=== PATIENT | male | born 1955 | race Hispanic/Latino ===

== ENCOUNTER 2017-08-16 07:20 | Emergency (ER) | payer BC ==
[2017-08-16 07:25] VITALS: BMI 22.6
[2017-08-16 07:33] VITALS: O2SAT 100
--- NOTE | 2017-08-16 07:50 | ED PDOC ---
Arrival/HPI - General Chief Complaint: Palpitations Time Seen by Provider: 08/16/17 07:50 - History of Present Illness Narrative History of Present Illness (Text): 08/16/17 7:50 Patient is a 61 year old male whose medical history includes afib, and throat cancer, who presents to the Emergency department complaining of palpitations and general weakness. Patient reports that he woke up this morning feeling fine but gradually started experiencing general weakness. He measured his BP twice at home with initial reading at 118/92 and subsequent measurement at 92/65. He notes that his BP machine found his heart rate to be erratic during both readings. Patient takes Metoprolol once daily for afib but denies taking any blood thinners. Patient denies any sob, nausea, vomiting, chest pain, fevers or any other complaints at this time. Of note patient is present with his significant other. His last cancer treatment was on April 2016. Rfid Analyst:. Time/Duration: Prior to Arrival Symptom Onset: Gradual Symptom Course: Unchanged Context: Home Past Medical History - Provider Review Nursing Documentation Reviewed: Yes - Infectious Disease Hx of Infectious Diseases: None - Cardiac Hx Atrial Fibrillation: Yes - Pulmonary Hx Respiratory Disorders: No - Neurological Hx Neurological Disorder: No - HEENT Hx HEENT Disorder: Yes Other/Comment: high pressure in left eye. throat cancer - Renal Hx Renal Disorder: No - Endocrine/Metabolic Hx Endocrine Disorders: No - Hematological/Oncological Hx Blood Transfusions: No Hx Blood Transfusion Reaction: No - Integumentary Hx Dermatological Disorder: No - Musculoskeletal/Rheumatological Hx Musculoskeletal Disorders: No - Gastrointestinal Hx Gastrointestinal Disorders: No - Genitourinary/Gynecological Hx Genitourinary Disorders: No - Psychiatric Hx Substance Use: No - Anesthesia Hx Anesthesia Reactions: Yes (LEG STIFFINESS/PAIN FOR 3 DAYS ) Hx Malignant Hyperthermia: No - Suicidal Assessment Feels Threatened In Home Enviroment: No Family/Social History - Physician Review Nursing Documentation Reviewed: Yes Family/Social History: No Known Family HX Smoking Status: Never Smoked Hx Alcohol Use: Yes (WINE- STOPPED WHEN DIAG W/CA) Hx Substance Use: No Allergies/Home Meds Allergies/Adverse Reactions: Allergies No Known Allergies Allergy (Verified 02/12/16 10:07) Home Medications: Home Meds Medication Instructions Recorded Confirmed Metoprolol Tartrate [Lopressor] 12.5 mg PO DAILY 06/09/16 06/09/16 Review of Systems - Physician Review All systems were reviewed & negative as marked: Yes - Review of Systems Respiratory: absent: SOB Cardiovascular: Palpitations Physical Exam - Physical Exam Narrative Physical Exam (Text): 08/16/17 07:50 Constitutional: No acute distress. Head: Normocephalic. Atraumatic. Eyes: PERRL. ENT: Moist mucous membranes. Neck: Supple. Cardiovascular: Regular rate. Chest: No tenderness. Respiratory: Clear to auscultation bilaterally. GI: Soft. Nontender. Nondistended. Back: No CVA tenderness. Musculoskeletal: No tenderness or swelling of extremities. Skin: No rash. Neurologic: Alert, no focal deficit. Vital Signs Temp Pulse Resp BP Pulse Ox 08/16/17 09:26 97.8 F 70 16 121/84 100 08/16/17 09:16 97.8 F 70 16 121/84 100 08/16/17 07:21 97.7 F 95 H 18 118/79 100 Medical Decision Making ED Course and Treatment: 08/16/17 07:50 Impression: Patient is a 61 year old male with history of afib and presents with general weakness and "erratic" HR on home BP machine, NSR in ED with no focal symptoms and normal Vital signs. Differential Diagnosis included but are not limited to: occult infection vs. dehydration vs. afib Plan: --labs and chest X-ray ordered. -- Reassess and disposition Prior Visits: Notes and results from previous visits were reviewed. Patient was last seen in the emergency department on Progress Notes: 08/16/17 07:58 EKG result shows NSR at [address]/T wave changes. 08/16/17 08:05 Chest X-ray results shows no acute disease. Interpreted by me. 08/16/17 09:00 Reevaluation: On reevaluation the patient feels better and is in no acute distress. I have discussed the results and plan with the patient, who expresses understanding. Patient given the opportunity to ask question, all questions were answered and there is agreement with the plan to discharge. Patient is stable for discharge. Patient was instructed to follow up with physician/clinic in 1-2 days or return if symptoms persist/worsen or new concerning symptoms arise. - Lab Interpretations Lab Results: 08/16/17 08:00 08/16/17 08:00 Lab Results 08/16/17 08:00: Sodium 142, Potassium 4.1, Chloride 105, Carbon Dioxide 29, Anion Gap 12, BUN 21, Creatinine 1.0, Est GFR ( Amer) > 60, Est GFR (Non- Af Amer) > 60, Random Glucose 122 H, Calcium 9.0, Phosphorus 2.6, Magnesium 2.0 , Total Bilirubin 0.4, AST 24, ALT 32, Alkaline Phosphatase 54, Total Protein 6.1, Albumin 3.8, Globulin 2.3, Albumin/Globulin Ratio 1.7 08/16/17 08:00: WBC 4.6, RBC 4.36, Hgb 13.9 L, Hct 40.4 L, MCV 92.7, MCH 31.9, MCHC 34.4, RDW 13.3, Plt Count 160, MPV 10.1, Gran % 76.3 H, Lymph % (Auto) 12.7 L, [place] % (Auto) 7.9 H, Eos % (Auto) 2.2, Baso % (Auto) 0.9, Gran # 3.50, Lymph # (Auto) 0.6 L, [place] # (Auto) 0.4, Eos # (Auto) 0.1, Baso # (Auto) 0.04 08/16/17 07:51: Urine Color Yellow, Urine Appearance Clear, Urine pH 6.0, Ur Specific [place] 1.020, Urine Protein Negative, Urine Glucose (UA) Negative, Urine Ketones Negative, Urine Blood Trace-intact H, Urine Nitrate Negative, Urine Bilirubin Negative, Urine Urobilinogen 0.2, Ur Leukocyte Esterase Negative , Urine RBC 2 - 5, Urine WBC 0 - 2, Ur Epithelial Cells None, Urine Bacteria Mod - RAD Interpretation Radiology Orders: 08/16/17 07:51 CHEST PORTABLE [RAD] Stat - Medication Orders Current Medication Orders: Discontinued Medications Sodium Chloride (Sodium Chloride 0.9%) 1,000 mls @ 999 mls/hr IV .Q1H1M STA Stop: 08/16/17 08:52 Last Admin: 08/16/17 08:10 Dose: 999 mls/hr eMAR Start Stop Document 08/16/17 08:10 LM (Rec: 08/16/17 08:10 [facility] [id number] Intravenous Solution Start Date 08/16/17 Start Time 08:10 End Date 08/16/17 End time 09:10 Total Infusion Time 60 - Scribe Statement The provider has reviewed the documentation as recorded by the Scribe Marquise Slater Provider Scribe Attestation: All medical record entries made by the Scribe were at my direction and personally dictated by me. I have reviewed the chart and agree that the record accurately reflects my personal performance of the history, physical exam, medical decision making, and the department course for this patient. I have also personally directed, reviewed, and agree with the discharge instructions and disposition. Disposition/Present on Arrival - Present on Arrival Any Indicators Present on Arrival: No History of DVT/PE: No History of Uncontrolled Diabetes: No Urinary Catheter: No History of Decub. Ulcer: No History Surgical Site Infection Following: None - Disposition Have Diagnosis and Disposition been Completed?: Yes Diagnosis: General weakness Disposition: HOME/ ROUTINE Disposition Time: 09:05 Condition: STABLE Discharge Instructions (ExitCare): Generalized Weakness Referrals: Gustavo Figueroa MD [Primary Care Provider] - Follow up with primary Forms: [employer] ([place]ian)
[2017-08-16] MEDS ORDERED: Sodium Chloride 0.9% 1,000 ML IV STA (07:52)
[2017-08-16 08:27] LABS: ALB/GLOB RATIO 1.7 (1.1-1.8); ALBUMIN 3.8 g/dL (3.0-4.8); ALT/SGPT 32 U/L (7-56); AST/SGOT 24 U/L (17-59); BLOOD UREA NITROGEN 21 mg/dL (7-21); GFR AFRICAN-AMERICAN > 60; GFR NON-AFRICAN AMERICAN > 60
[2017-08-16 08:30] LABS: BASO # 0.04 K/mm3 (0.0-2.0); BASO % 0.9 % (0.0-3.0); EOS # 0.1 (0.0-0.7); EOS % 2.2 % (1.5-5.0); GRAN # 3.5 (1.4-6.5); GRAN % 76.3 % (50.0-68.0); HEMOGLOBIN 13.9 g/dL (14.0-18.0); LYMPH # 0.6 (1.2-3.4); LYMPH % 12.7 % (22.0-35.0); MEAN CELL VOLUME 92.7 fl (80.0-105.0); MEAN CORPUSCULAR HEMOGLOBIN 31.9 pg (25.0-35.0); MEAN CORPUSCULAR HGB CONC 34.4 g/dl (31.0-37.0); MEAN PLATELET VOLUME 10.1 fl (7.0-11.0); MONO # 0.4 (0.1-0.6); MONO % 7.9 % (1.0-6.0); RBC 4.36 10^6/uL (3.5-6.1); RED CELL DISTRIBUTION WIDTH 13.3 % (11.5-14.5); WHITE BLOOD COUNT 4.6 10^3/ul (4.5-11.0)
[2017-08-16 08:46] LABS: URINE BILIRUBIN NEGATIVE (NEGATIVE); URINE BLOOD TRACE-INTACT (NEGATIVE); URINE GLUCOSE (UA) NEGATIVE (NEGATIVE); URINE LEUKOCYTE ESTERASE NEGATIVE Leu/uL (NEGATIVE); URINE PROTEIN NEGATIVE mg/dL (<30 mg/dL); URINE UROBILINOGEN 0.2 E.U./dL (<1 E.U./dL)
[2017-08-16 08:48] LABS: URINE COLOR YELLOW (YELLOW)
[2017-08-16 08:49] LABS: URINE APPEARANCE CLEAR (CLEAR)
[2017-08-16 09:01] LABS: URINE BACTERIA MOD (NEG); URINE WBC 0 - 2 /hpf (0-6)
[2017-08-16 09:17] VITALS: BP 121/84; PULSE 70; RESP 16; TEMP 97.8
--- NOTE | 2017-08-16 09:26 | RAD ---
HISTORY: Generalize weakness. Atrial fibrillation. COMPARISON: No prior. FINDINGS: LUNGS: No active pulmonary disease. PLEURA: No significant pleural effusion identified, no pneumothorax apparent. CARDIOVASCULAR: No radiographic findings to suggest acute or significant cardiovascular disease. OSSEOUS STRUCTURES: No significant abnormalities. VISUALIZED UPPER ABDOMEN: Normal. OTHER FINDINGS: None. IMPRESSION: No active disease. No significant interval change compared to the prior examination(s).
--- NOTE | 2017-08-16 19:19 | CARD ---
APPROVED REPORT EKG Measurement Heart [id number] DC [id number] <Conclusion> Normal sinus rhythm Normal ECG
== END 2017-08-16 09:27 | disposition home or self-care (01) ==
LOC: ED 07:20
DX: R53.1 Weakness (principal); I48.91 Unspecified atrial fibrillation
CPT/HCPCS: 71045; 80053; 81001; 83735; 84100; 85025; 93005; 96360; 99283; J7040

== ENCOUNTER 2017-09-01 06:07 | Day surgery (SDC) | payer OTHER, BC ==
[2017-08-30 09:53] VITALS: BMI 22.8
[2017-09-01] MEDS ORDERED: Lidocaine 2% Inj (20ml) ONE (06:56)
[2017-09-01] MEDS ORDERED: Midazolam 2 MG/2 ML VIAL ONE ×2 (06:57→08:17)
[2017-09-01] MEDS ORDERED: Phenylephrine 10 mg/ml Inj ONE (06:57)
[2017-09-01] MEDS ORDERED: Iodixanol 320 MG/ML 100 ML BOTTLE IV ONE (06:57)
[2017-09-01] MEDS ORDERED: Iohexol 350mgl/ml 50 ML ONE (06:57)
[2017-09-01] MEDS ORDERED: Nitroglycerin 50mg in D5W 50 MG/250 ML BOTTLE IV ONE (06:58)
[2017-09-01] MEDS ORDERED: Iodixanol 320 MG/ML 200 ML BOTTLE IV ONE (06:58)
[2017-09-01 07:01] LABS: BASO # 0.02 K/mm3 (0.0-2.0); BASO % 0.5 % (0.0-3.0); EOS # 0.1 (0.0-0.7); EOS % 3.3 % (1.5-5.0); GRAN # 3.03 (1.4-6.5); GRAN % 70.5 % (50.0-68.0); HEMOGLOBIN 13.3 g/dL (14.0-18.0); LYMPH # 0.7 (1.2-3.4); LYMPH % 16.1 % (22.0-35.0); MEAN CELL VOLUME 91.6 fl (80.0-105.0); MEAN CORPUSCULAR HEMOGLOBIN 30.9 pg (25.0-35.0); MEAN CORPUSCULAR HGB CONC 33.7 g/dl (31.0-37.0); MEAN PLATELET VOLUME 9.9 fl (7.0-11.0); MONO # 0.4 (0.1-0.6); MONO % 9.6 % (1.0-6.0); RBC 4.31 10^6/uL (3.5-6.1); RED CELL DISTRIBUTION WIDTH 13.2 % (11.5-14.5); WHITE BLOOD COUNT 4.3 10^3/ul (4.5-11.0)
[2017-09-01 07:07] LABS: BLOOD UREA NITROGEN 25 mg/dL (7-21); GFR AFRICAN-AMERICAN > 60; GFR NON-AFRICAN AMERICAN > 60; HDL CHOLESTEROL 67 mg/dL (29-60)
[2017-09-01 07:17] LABS: INR 1.16 (0.93-1.08); PARTIAL THROMBOPLASTIN TIME 27.7 Seconds (25.1-36.5); PROTHROMBIN TIME 13.4 SECONDS (9.4-12.5)
[2017-09-01 07:18] LABS: LDL CHOLESTEROL 70 mg/dL (0-129)
[2017-09-01 09:10] VITALS: TEMP 97.6
[2017-09-01] MEDS ORDERED: Sodium Chloride 0.9% 1,000 ML IV SCH (09:15)
--- NOTE | 2017-09-01 10:52 | CARDCATH ---
PROCEDURE DATE: 09/01/2017 HISTORY: The patient is a 61-year-old male who presents with cardiomyopathy. His ejection fraction on stress test was approximately 47%. The patient's past medical history is notable for recent chemotherapy, treated for CA. He has complained of weakness. Occasionally, he has gone into atrial fibrillation with palpitations and has been hypotensive. His stress test was abnormal revealing an EF of 47% with ischemic changes. Because of this, a cardiac catheterization was recommended. PROCEDURE: Left heart catheterization with coronary arteriography and left ventriculogram with supra-aortic valvular injection. The right femoral artery was cannulated with 6-Persian sheath. There were no complications. I performed moderate sedation, which included the presence of an independent trained observer that assisted in monitoring the patient's level of consciousness and physiologic status. After administration of fentanyl and Versed, my intra service time was 15 minutes. The findings on catheterization revealed a left ventricle that was mildly dilated and mildly hypokinetic with an estimated ejection fraction of 45%-50%. There was no mitral regurgitation. Supra-aortic valvular injection revealed no aortic insufficiency. His coronary anatomy revealed a right dominant circulation. The RCA was within normal limits. The left main artery was unremarkable. The LAD and diagonal vessels were free of significant disease. The circumflex artery was within normal limits. Angio-Seal was used to close the femoral artery site. The patient tolerated the procedure well. In summary, the procedure revealed a mild dilated cardiomyopathy. Etiology is unclear. It may be related to his chemotherapy. His coronary arteries are normal. No mitral regurgitation. No aortic insufficiency. Given these findings, the patient's treatment will be medical therapy with the addition of an MEG inhibitor as tolerated. I will start the patient on exercise program. Addi Simons MD
[2017-09-01 12:31] VITALS: O2SAT 99
[2017-09-01 12:39] VITALS: RESP 16
[2017-09-01 13:37] VITALS: BP 108/60; PULSE 54
--- NOTE | 2017-09-01 16:52 | CARD ---
APPROVED REPORT EKG Measurement Heart [id number] [id number] <Conclusion> Sinus bradycardia Otherwise normal ECG
== END 2017-09-01 15:15 | disposition home or self-care (01) ==
LOC: CATH 06:07
PROVIDERS: ATTEND Internal Medicine Cardiovascular Disease
DX: I42.0 Dilated cardiomyopathy (principal); I48.91 Unspecified atrial fibrillation; I10 Essential (primary) hypertension; I95.9 Hypotension, unspecified; R00.2 Palpitations
CPT/HCPCS: 36415; 80048; 80061; 85025; 85610; 85730; 86850; 86900; 93005; 93458; 99152; C1760; C1769; C2629; J1644; J2250; J3010; J7040 ×2; Q9966